=== PATIENT | female | born 1965 | race Caucasian/White ===

== ENCOUNTER 2016-08-07 12:07 | Emergency (ER) | payer OTHER ==
[2016-08-07 12:18] VITALS: BP 127/73; PULSE 61; RESP 16; TEMP 98.6; O2SAT 98
--- NOTE | 2016-08-07 12:46 | UCPHY ---
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 Washed and local wound care by her. Yesterday went to hug her son and avulsed piece of skin and started bleeding and hurting a lot more. bleeding well controlled now. REVIEW OF SYSTEMS: No pus or drainage and no redness. No weakness or numbness distally. PAST MEDICAL HISTORY: Negative, tetanus up-to-date Social history: Nonsmoker General Appearance: Alert and conversant, cooperative. 3 x 3 cm skin flap avulsion with scab and clotted blood. No active bleeding. Surrounding finger is not red and there is no lymphangitis. Not swollen and no proximal tenderness. Emergency Department course/MDM: Avulsion type wound with flap likely serving as a scab until it will fall off. She is heading to [place] was warned not to do any prolonged immersion in water with her thumb. Otherwise standard wound care. Smoking Status: Never smoked Constitutional: Initial Vital Signs Temperature (C) 37 C 08/07/16 12:10 Heart Rate 61 08/07/16 12:10 Respiratory Rate 16 08/07/16 12:10 Blood Pressure 127/73 H 08/07/16 12:10 O2 Sat (%) 98 08/07/16 12:10 O2 Delivery Mode Room Air Allergies/Adverse Reactions: No Known Allergies Allergy (Verified 08/07/16 12:17) Home Medications: Medication Instructions Recorded Herbals/Supplements -Info Only 08/07/16 MDM/Departure - Depart Disposition: Home, Routine, Self-Care Clinical Impression: Avulsion of skin of thumb Qualifiers: Encounter type: initial encounter Laterality: left Qualified Code(s): S61.002A - Unspecified open wound of left thumb without damage to nail, initial encounter Condition: Good Instructions: Acute Wounds (ED) Referrals: Garcia Bradford DO [Primary Care Provider] - As per Instructions - PQRS PQRS Measurement: na
== END 2016-08-07 12:57 | disposition home or self-care (01) ==
LOC: CED 12:07
DX: S61.002A Unspecified open wound of left thumb without damage to nail, initial encounter (principal); W26.0XXA Contact with knife, initial encounter
CPT/HCPCS: 99202-PO; G0463-PO